=== PATIENT | female | born 1995 | race American Indian/Alaskan Native ===

== ENCOUNTER 2018-01-29 08:49 | Inpatient (IN) | payer OTHER ==
[2018-01-29] MEDS ORDERED: BENADRYL PO PRN (10:17)
[2018-01-29] MEDS ORDERED: LANSINOH TP PRN (10:17)
[2018-01-29] MEDS ORDERED: TYLENOL PO PRN (10:17)
[2018-01-29] MEDS ORDERED: DULCOLAX PR PRN (10:17)
[2018-01-29] MEDS ORDERED: PHENERGAN PO PRN (10:17)
[2018-01-29] MEDS ORDERED: TUCKS PAD TP PRN (10:17)
[2018-01-29] MEDS ORDERED: ZOFRAN IV PRN (10:17)
[2018-01-29] MEDS ORDERED: MILK OF MAGNESIA PO PRN (10:17)
[2018-01-29] MEDS ORDERED: NORCO 5/325 PO PRN (10:17)
--- NOTE | 2018-01-29 10:26 | History and Physical Report ---
History of Present Illness Date of examination: 01/29/18 Date of admission: 01/29/18 08:49 Chief complaint: Home delivery History of present illness: 22 yo AA Fe LMP 04/30/2017, ANGIE 02/04/2018 (LMP) 39 weeks 1 day, arrived via EMS after home delivery () viable infant. Placenta delivered upon arrival. Infant at breast nursing upon arrival. Pt reports labor started at 2 am and she delivered around 7:30 am. Pt initiated late care at 20+ weeks at [facility]. course uneventful. Vitamin D deficiency and Anemia on Vit D3 and FeS04. History of 2 previous sections. O positive, Rubella immune, GBS positive. Past History Past Medical History: no pertinent history Past Surgical History: section (x2; 2013 & 2015) [employer] History: denies: abnormal PAP smear, chlamydia, gonorrhea, hepatitis B, hepatitis C, herpes, HIV, syphilis, trichomonas Family/Genetic History: diabetes, hypertension Social history: no significant social history, single, lives with family, full code. denies: smoking, alcohol abuse, prescription drug abuse, IV drug use - Obstetrical History Expected Date of Delivery: 02/04/18 Actual Gestation: 39 Week(s) 1 Day(s) : 3 Para: 2 Hx # Term Pregnancies: 2 Number of Pregnancies: 0 Spontaneous Abortions: 0 Induced : 0 Number of Living Children: 2 #1 Gender: Male year: 2,[birth year] Birthweight: 3.572 kg Method of Delivery: (Failure to progress) Gestational age at delivery: 40 Complications: none #2 Gender: Male year: 2,[birth year] Birthweight: 3.203 kg Method of Delivery: Gestational age at delivery: 38 Complications: none Medications and Allergies Allergies Allergy/AdvReac Type Severity Reaction Status Date / Time No Known Allergies Allergy Verified 01/29/18 10:36 Review of Systems Cardiovascular: no chest pain, no shortness of breath Respiratory: no shortness of breath Breasts: normal Gastrointestinal: no nausea, no vomiting, no diarrhea, no constipation Genitourinary: vaginal bleeding (Normal PP lochia), no genital sores Integumentary: no rash, no sores, no lesions - Vital Signs Vital signs: Vital Signs Pulse BP 85 127/64 01/29/18 09:00 01/29/18 09:00 Temp Pulse Resp BP Pulse Ox 63 109/59 01/29/18 10:08 01/29/18 10:08 - Physical Exam Breasts: Positive: Cardiovascular: Regular rate, Normal S1, Normal S2 Lungs: Positive: Clear to auscultation, Normal air movement Abdomen: Positive: normal appearance, soft, normal bowel sounds Genitourinary (Female): Positive: normal external genitalia, normal perenium Vulva: both: laceration/episiotomy (Small 1st degree, left unrepaired ) Uterus: Positive: enlarged (FF@U) Extremities: Positive: normal Deep Tendon Reflex Grade: Normal +2 Results All other labs normal. Assessment and Plan A: arrived via EMS s/p Stable GBS Negative 1st degree perineal lac, left unrepaired P: Routine PP orders
--- NOTE | 2018-01-29 10:49 | Procedure Note ---
OB Delivery Note - Delivery Date of Delivery: 01/29/18 (Home delivery; ) Surgeon: BARBARA ESQUEDA (ESME ) - Vaginal Delivery presentation: vertex Intrapartum events: other(please specify) (Home delivery; Reports labor started at 2am and she delivered around 730) Delivery induction: none Delivery monitor: none Route of delivery: (at home) Episiotomy: none Delivery laceration: 1st degree (inspected perineum after arrival to [facility]; small 1st degree, left unrepaired) Anesthesia: none Delivery comments: at home 01/29/2018. See admission for details - A Gender: Male (3138g, 6-15oz, 19" Apgars not assigned but pt reports vigorous baby at delivery)
[2018-01-29] MEDS ORDERED: SODIUM CHLORIDE FLUSH SYRINGE 10 ML IV NR (11:00)
[2018-01-29] MEDS: MOTRIN PO SCH (18:10)
[2018-01-29 21:20] LABS: Hematocrit 28.6 % (30.3-42.9); Hemoglobin 9.4 gm/dl (10.1-14.3)
[2018-01-30] MEDS: MOTRIN PO SCH ×4 (11:00→23:00)
--- NOTE | 2018-01-30 13:10 | Progress Note ---
Assessment and Plan - Patient Problems (1) , delivered Current Visit: Yes Status: Acute Plan to address problem: PPD#1 Doing well. Anticipate discharge tomorrow. (2) Anemia Current Visit: Yes Status: Acute Qualifiers: Anemia type: iron deficiency Plan to address problem: Asymptomatic. Continue supplemental iron. Subjective - Subjective Date of service: 01/30/18 Principal diagnosis: PPD#1 s/p home Patient reports: appetite normal, voiding normally, pain well controlled : doing well Objective - Vital Signs Latest vital signs: Vital Signs Temp Pulse Resp BP BP Pulse Ox 01/30/18 09:40 98.6 F 77 18 102/49 97 01/30/18 04:43 97.6 F 71 18 123/76 94 01/30/18 04:34 98.5 F 79 18 93/54 96 01/30/18 04:25 97.2 F L 83 19 103/55 96 01/30/18 04:12 99.2 F 74 19 99/64 98 01/30/18 04:08 98.6 F 17 93/54 01/29/18 22:58 97.4 F L 82 17 97 01/29/18 17:33 99.0 F 78 18 105/63 96 - Exam Abdomen: Present: normal appearance, soft Uterus: Present: fundal height below umbilicus Extremities: Present: normal - Labs Labs: Abnormal lab results 01/29/18 Range/Units 20:52 Hgb 9.4 L (10.1-14.3) gm/dl Hct 28.6 L (30.3-42.9) %
--- NOTE | 2018-01-30 13:14 | Discharge Summary ---
Providers - Providers Date of Admission: 01/29/18 08:49 Date of discharge: 01/31/18 Attending physician: COLT SUÁREZ MD Primary care physician: COLT SUÁREZ MD Hospitalization Reason for admission: other (Home ) Delivery: complications: none Discharge diagnosis: baby: male Condition at discharge: Stable Disposition: - TO HOME OR SELFCARE - Discharge Diagnoses (1) , delivered Status: Acute (2) Anemia Status: Acute Qualifiers: Anemia type: iron deficiency Comment: Asymptomatic. Discharged on PO iron. Plan - Discharge Medications Prescriptions: Ferrous Sulfate [Feosol 325 MG tab] 325 mg PO BID #60 tablet - Provider Discharge Summary Activity: no sex for 6 weeks, no heavy lifting 4 weeks, no strenuous exercise Diet: routine Instructions: routine Additional instructions: [] Smoking cessation referral if applicable(refer to patient education folder for contact #) [] Refer to [facility] Booklet Call your doctor immediately for: * Fever > 100.5 * Heavy vaginal bleeding ( >1 pad per hour) * Severe persistent headache * Shortness of breath * Reddened, hot, painful area to leg or breast * Drainage or odor from incision. * Keep incision clean and dry at all times and follow doctor's instructions regarding bathing/showering - Follow up plan Follow up: COLT SUÁREZ MD [Primary Care Provider] - 6 Weeks
[2018-01-30] MEDS: FEOSOL PO SCH (23:42)
[2018-01-31 01:23] VITALS: BP 111/79
[2018-01-31] MEDS: MOTRIN PO SCH ×2 (05:00→12:34)
[2018-01-31] MEDS: FEOSOL PO SCH (11:22)
== END 2018-01-31 16:20 | disposition home or self-care (01) | DRG 776 ==
LOC: LD 08:49 → OB 11:55
PROVIDERS: ADMIT Obstetrics & Gynecology; ATTEND Obstetrics & Gynecology
DX: O70.0 First degree perineal laceration during delivery (principal); O90.81 Anemia of the puerperium; O99.825 Streptococcus B carrier state complicating the puerperium; D64.9 Anemia, unspecified
CPT/HCPCS: 36415; 85014; 85018